=== PATIENT | female | born 1960 | race Two or more races ===

== ENCOUNTER → 2016-03-15 | Outpatient (CLI) | payer OTHER ==
--- NOTE | 2016-03-15 14:33 | KCIC ---
PROCEDURE MR right foot and right ankle HISTORY Posterior tibial tendinitis for 4 months after a fall. Pain at the medial ankle and arch of the foot. Swelling. COMPARISON None FINDINGS Right ankle Peroneal tendons are intact. Anterior talofibular ligament demonstrates sprain without complete rupture. Calcaneofibular ligament and posterior talofibular ligament are intact the anterior inferior tibiofibular ligament intact. Posterior tibial tendon demonstrates moderate thickening with symmetrical signal compatible with tendinosis and mild interstitial partial tearing. There is also some signal at the attachment of the navicular aspect of the tendon compatible with partial tear. Mild fluid surrounds the posterior tibial tendon and the flexor tendons The anterior tibial and extensor tendons are intact. The Achilles tendon is intact. No acute plantar fasciitis. Subtalar joints are patent. Tarsal sinus is intact. There is small subchondral cystic changes at the medial talar dome without osteochondral fracture or unstable osteochondral lesion. There is no acute fracture or aggressive bone destruction. Small tibiotalar joint effusion. Small posterior subtalar joint effusion. Mild soft tissue edema around the ankle. Right foot Lisfranc ligament complex is intact as is tarsometatarsal alignment. Primary osteoarthritis is identified at the foot, at the tarsometatarsal joints particularly where there is subchondral marrow reactive edema and cystic change. Similar findings are also identified at the naviculocuneiform joints No evidence of tendon rupture in the foot. Mild flexor tendon sheath fluid at the level of Tyrell's knot. No acute sesamoiditis. IMPRESSION 1. Posterior tibial tenosynovitis with partial tearing. 2. Anterior talofibular ligament sprain. 3. Mild subchondral cystic change at the medial talar dome, but without fracture or unstable osteochondral lesion. 4. Small tibiotalar and posterior subtalar joint effusions. Electronically signed by: Aren Shepard MD (Mar 15, 2016 14:32:07)
== END | disposition home or self-care (01) ==
LOC: KCIC MRI 12:46
PROVIDERS: ATTEND Podiatrist
DX: M76.821 Posterior tibial tendinitis, right leg (principal); M25.571 Pain in right ankle and joints of right foot; M25.471 Effusion, right ankle; M19.071 Primary osteoarthritis, right ankle and foot; S93.491A Sprain of other ligament of right ankle, initial encounter; X58.XXXA Exposure to other specified factors, initial encounter; Y93.89 Activity, other specified; Y92.89 Other specified places as the place of occurrence of the external cause; Y99.8 Other external cause status
CPT/HCPCS: 73718; 73721

== ENCOUNTER → 2017-01-23 | Outpatient (CLI) | payer OTHER ==
--- NOTE | 2017-02-06 08:56 | CARD ---
APPROVED REPORT EXAM: Two-dimensional and M-mode echocardiogram with Doppler and color Doppler. Other Information Quality : GoodHR: 67bpm INDICATION Abnormal ECG 2D DIMENSIONS RVDd3.0 (2.9-3.5cm)IVSd1.1 (0.7-1.1cm) Aortic Root(2D)2.7 (2.0-3.7cm)LVDd5.0 (3.9-5.9cm) LVOT Diameter1.8 (1.8-2.4cm)PWd1.1 (0.7-1.1cm) IVSs1.5 (0.8-1.2cm)LVDs3.7 (2.5-4.0cm) FS (%) 25.8 %PWs1.1 (0.8-1.2cm) SV60.5 mlLVEF(%)50.6 (>50%) Aortic Valve AoV Peak Tom.139.6cm/sAoV VTI30.5cm AO Peak GR.7.8mmHgLVOT Peak Tom.103.3cm/s AO Mean GR.4mmHgAVA (VMAX)1.92cm2 Mitral Valve MV E Wsrhmsdi16.1cm/sMV DECEL ELGB978xo MV A Orlptccd05.1cm/sE/A Ratio1.3 Pulmonary Valve PV Peak Pcdgcgmz587.3cm/s Tricuspid Valve RAP [id number] LEFT VENTRICLE The left ventricle is normal size. There is mild concentric left ventricular hypertrophy. Sigmoidal s eptum present. The left ventricular systolic function is normal. The ejection fraction is estimated a t 55-60%. There is normal LV segmental wall motion. Transmitral Doppler flow pattern is Grade I-abnor mal relaxation pattern. RIGHT VENTRICLE The right ventricle is normal size. The right ventricular systolic function is normal. ATRIA The left atrium size is normal. The right atrium size is normal. The interatrial septum is intact wit h no evidence for an atrial septal defect or patent foramen ovale as noted on 2-D or Doppler imaging. AORTIC VALVE The aortic valve is mildly thickened but opens well. Doppler and Color Flow revealed no significant a ortic regurgitation. There is no significant aortic valvular stenosis. MITRAL VALVE The mitral valve is normal in structure and function. There is no evidence of mitral valve prolapse. There is no mitral valve stenosis. Doppler and Color Flow revealed no mitral valve regurgitation note d. TRICUSPID VALVE The tricuspid valve is normal in structure and function. Doppler and Color Flow revealed trace tricus pid valve regurgitation. There is no tricuspid valve prolapse or vegetation. There is no tricuspid va lve stenosis. PULMONIC VALVE The pulmonary valve is normal in structure and function. Doppler and Color Flow revealed no pulmonic valvular regurgitation. There is no pulmonic valvular stenosis. GREAT VESSELS The aortic root is normal in size. The ascending aorta is normal in size. The IVC is normal in size a nd collapses >50% with inspiration. PERICARDIAL EFFUSION There is no pleural effusion. There is no evidence of significant pericardial effusion. Critical Notification Critical Value: No <Conclusion> The left ventricular systolic function is normal. The ejection fraction is estimated at 55-60%. There is normal LV segmental wall motion. Doppler and Color Flow revealed trace tricuspid valve regurgitation. There is no evidence of significant pericardial effusion.
== END | disposition home or self-care (01) ==
LOC: ECHO 11:03
PROVIDERS: ATTEND Internal Medicine Cardiovascular Disease
DX: I45.10 Unspecified right bundle-branch block (principal); I51.7 Cardiomegaly; R94.31 Abnormal electrocardiogram [ECG] [EKG]
CPT/HCPCS: 93306

== ENCOUNTER → 2017-03-12 | Outpatient (CLI) | payer OTHER | LOC: KCIC 15:12 | DX: M48.8X6 Other specified spondylopathies, lumbar region (principal); M47.892 Other spondylosis, cervical region; M25.78 Osteophyte, vertebrae; M47.896 Other spondylosis, lumbar region | CPT/HCPCS: 72050; 72110; 73130 ==

== ENCOUNTER → 2017-03-28 | Outpatient (CLI) | payer OTHER | END | disposition home or self-care (01) | LOC: KCIC MRI 13:00 | DX: M47.896 Other spondylosis, lumbar region (principal); M41.86 Other forms of scoliosis, lumbar region; D18.09 Hemangioma of other sites | CPT/HCPCS: 72148 ==

== ENCOUNTER 2017-05-27 09:30 | Inpatient (IN) | payer OTHER ==
[2017-05-27 10:03] LABS: POC GLUCOSE 120 mg/dL (70-99)
[2017-05-27 10:09] LABS: ADD MAN DIFF? NO
[2017-05-27 10:11] LABS: BASO # 0.1 x10^3/uL (0.0-0.2); BASO % 1 % (0-3); EOS # 0.4 x10^3/uL (0.0-0.7); EOS % 4 % (0-3); HEMATOCRIT 33.8 % (36.0-47.0); HEMOGLOBIN 11.5 g/dL (12.0-15.5); LYMPH # 3.3 x10^3/uL (1.0-4.8); LYMPH % 32 % (24-48); MEAN CORPUSCULAR HEMOGLOBIN 29 pg (25-35); MEAN CORPUSCULAR HGB CONC 34 g/dL (31-37); MEAN CORPUSCULAR VOLUME 84 fL (79-100); MONO # 0.6 x10^3/uL (0.0-1.1); MONO % 6 % (0-9); NEUT # 6.1 x10^3uL (1.8-7.7); NEUT % 58 % (31-73); PLATELET COUNT 423 x10^3/uL (140-400); RED BLOOD COUNT 4.03 x10^6/uL (3.50-5.40); WHITE BLOOD COUNT 10.6 x10^3/uL (4.0-11.0)
[2017-05-27 10:22] LABS: ANION GAP 10 (6-14); BLOOD UREA NITROGEN 21 mg/dL (7-20); BUN/CREATININE RATIO 15 (6-20); CALCIUM 8.6 mg/dL (8.5-10.1); CARBON DIOXIDE 26 mmol/L (21-32); CHLORIDE 98 mmol/L (98-107); CREATININE 1.4 mg/dL (0.6-1.0); GLUCOSE 134 mg/dL (70-99); POTASSIUM 3.2 mmol/L (3.5-5.1); SODIUM 134 mmol/L (136-145)
[2017-05-27] MEDS: IV NORMAL SALINE 1000ML BAG 1,000 ML IV ×3 (10:26→21:12)
[2017-05-27] MEDS: ONDANSETRON PF 4 MG/2 ML VIAL. IV (10:26)
[2017-05-27 10:28] LABS: ALBUMIN 3.1 g/dL (3.4-5.0); ALBUMIN/GLOBULIN RATIO 0.7 (1.0-1.7); ALK PHOS 75 U/L (46-116); ALT (SGPT) 19 U/L (14-59); AST (SGOT) 15 U/L (15-37); MAGNESIUM 1.9 mg/dL (1.8-2.4); TOTAL BILIRUBIN 0.3 mg/dL (0.2-1.0); TOTAL PROTEIN 7.6 g/dL (6.4-8.2)
[2017-05-27 10:30] LABS: TROPONINI < 0.017 ng/mL (0.000-0.055)
[2017-05-27 10:36] LABS: NT-PRO BNP 926 pg/mL (0-124)
[2017-05-27 10:36] LABS: CKMB INDEX 1.1 % (0-4); CKMB MASS 1.1 ng/mL (0.0-3.6); CREATINE KINASE 100 U/L (26-192)
[2017-05-27 11:18] LABS: BILIRUBIN,URINE NEGATIVE (NEG); CLARITY,URINE CLEAR; COLOR,URINE YELLOW; GLUCOSE,URINE NEGATIVE (NEG); NITRITE,URINE NEGATIVE (NEG); PH,URINE 6.5; PROTEIN,URINE NEGATIVE (NEG-TRACE); UROBILINOGEN,URINE 0.2 mg/dL (0.2 mg/dL)
[2017-05-27 11:49] LABS: BACTERIA,URINE FEW /HPF (0-FEW); RBC,URINE 0 /HPF (0-2); SQUAMOUS EPITHELIAL CELL,UR MOD /LPF; WBC,URINE 0 /HPF (0-4)
[2017-05-27] MEDS: fentaNYL PF VIAL 100 MCG/2 ML VIAL IV (12:03)
[2017-05-27] MEDS: MIDAZOLAM HCL/PF 2 MG/2 ML VIAL. IV (12:25)
[2017-05-27] MEDS ORDERED: ONDANSETRON PF 4 MG/2 ML VIAL. IV (12:45)
[2017-05-27] MEDS ORDERED: fentaNYL PF VIAL 100 MCG/2 ML VIAL IV (12:45)
[2017-05-27] MEDS: ACETAMINOPHEN 325 MG TABLET. PO ×2 (14:59→21:12)
[2017-05-27 16:23] LABS: TROPONINI < 0.017 ng/mL (0.000-0.055)
[2017-05-27 16:45] LABS: POC GLUCOSE 137 mg/dL (70-99)
[2017-05-27] MEDS: ASPIRIN ENTERIC COATED 81 MG TABLET.DR. PO ×2 (17:55→18:00)
[2017-05-27] MEDS: POTASSIUM CHLORIDE 20 MEQ TABLET.ER. PO ×2 (17:55→18:30)
[2017-05-27] MEDS: ESTRADIOL 1 MG TABLET. PO ×2 (17:55→18:00)
[2017-05-27] MEDS: LIDOCAINE (700MG/PATCH) PATCH. TD (17:55)
[2017-05-27] MEDS: TRIAMTERENE/HCTZ 37.5/25MG TABLET. PO (18:00)
[2017-05-27] MEDS: LEVOTHYROXINE 175 MCG TABLET PO (18:00)
[2017-05-27 18:39] LABS: TROPONINI < 0.017 ng/mL (0.000-0.055)
[2017-05-27] MEDS: PATCH REMOVAL. MC (20:07)
[2017-05-27] MEDS ORDERED: PATCH REMOVAL. MC (21:00)
[2017-05-27] MEDS: tiZANidine 4 MG TABLET. PO (21:13)
[2017-05-27] MEDS: LABETALOL HCL 200 MG TABLET PO (21:13)
[2017-05-27 22:00] LABS: POC GLUCOSE 112 mg/dL (70-99)
[2017-05-28 04:46] LABS: ADD MAN DIFF? NO
[2017-05-28 04:52] LABS: BASO # 0.1 x10^3/uL (0.0-0.2); BASO % 1 % (0-3); EOS # 0.3 x10^3/uL (0.0-0.7); EOS % 3 % (0-3); HEMATOCRIT 29.9 % (36.0-47.0); HEMOGLOBIN 10.2 g/dL (12.0-15.5); LYMPH # 3.5 x10^3/uL (1.0-4.8); LYMPH % 40 % (24-48); MEAN CORPUSCULAR HEMOGLOBIN 29 pg (25-35); MEAN CORPUSCULAR HGB CONC 34 g/dL (31-37); MEAN CORPUSCULAR VOLUME 85 fL (79-100); MONO # 0.6 x10^3/uL (0.0-1.1); MONO % 7 % (0-9); NEUT # 4.3 x10^3uL (1.8-7.7); NEUT % 49 % (31-73); PLATELET COUNT 373 x10^3/uL (140-400); RED BLOOD COUNT 3.54 x10^6/uL (3.50-5.40); RED CELL DISTRIBUTION WIDTH 14.3 % (11.5-14.5); WHITE BLOOD COUNT 8.8 x10^3/uL (4.0-11.0)
[2017-05-28] MEDS: IV NORMAL SALINE 1000ML BAG 1,000 ML IV (05:12)
[2017-05-28 05:13] LABS: ANION GAP 6 (6-14); BLOOD UREA NITROGEN 23 mg/dL (7-20); CARBON DIOXIDE 27 mmol/L (21-32); CHLORIDE 107 mmol/L (98-107); CHOLESTEROL 151 mg/dL (0-200); CREATININE 1.4 mg/dL (0.6-1.0); GLUCOSE 110 mg/dL (70-99); HDLC 48 mg/dL (40-60); LDLC 80 mg/dL (0-100); NON-HDL CHOLESTEROL 103 mg/dL (0-129); POTASSIUM 3.4 mmol/L (3.5-5.1); SODIUM 140 mmol/L (136-145); TRIGLYCERIDES 114 mg/dL (0-150); VLDLC 23 mg/dL (0-40)
[2017-05-28 05:17] LABS: CHOLESTEROL/HDL RATIO 3.1
[2017-05-28 05:25] LABS: THYROID STIM HORMONE (TSH) 0.997 uIU/mL (0.358-3.74)
[2017-05-28 07:39] LABS: POC GLUCOSE 111 mg/dL (70-99)
[2017-05-28] MEDS: TRIAMTERENE/HCTZ 37.5/25MG TABLET. PO (08:08)
[2017-05-28] MEDS: LEVOTHYROXINE 175 MCG TABLET PO (08:08)
[2017-05-28] MEDS: ASPIRIN ENTERIC COATED 81 MG TABLET.DR. PO (08:09)
[2017-05-28] MEDS: CHOLECALCIFEROL (VITAMIN D3) 1,000 UNIT TABLET PO (08:10)
[2017-05-28] MEDS: LABETALOL HCL 200 MG TABLET PO (08:10)
[2017-05-28] MEDS: LIDOCAINE (700MG/PATCH) PATCH. TD (08:12)
[2017-05-28] MEDS: ESTRADIOL 1 MG TABLET. PO (09:27)
[2017-05-28] MEDS: POTASSIUM CHLORIDE 20 MEQ TABLET.ER. PO (11:33)
[2017-05-28] MEDS: ACETAMINOPHEN 325 MG TABLET. PO (16:13)
== END 2017-05-28 17:12 | disposition home or self-care (01) | DRG 103 ==
LOC: ER 09:30 → 5 NORTH 11:40
PROC: 5A09357 Assistance with Respiratory Ventilation, Less than 24 Consecutive Hours, Continuous Positive Airway Pressure (ICD-10-PCS; principal; 2017-05-28)
DX: G43.909 Migraine, unspecified, not intractable, without status migrainosus (principal); E11.22 Type 2 diabetes mellitus with diabetic chronic kidney disease; N18.3 Chronic kidney disease, stage 3 (moderate); F32.9 Major depressive disorder, single episode, unspecified; R13.10 Dysphagia, unspecified; E03.9 Hypothyroidism, unspecified; G89.29 Other chronic pain; G47.33 Obstructive sleep apnea (adult) (pediatric); M06.9 Rheumatoid arthritis, unspecified; I12.9 Hypertensive chronic kidney disease with stage 1 through stage 4 chronic kidney disease, or unspecified chronic kidney disease; M79.7 Fibromyalgia; M19.90 Unspecified osteoarthritis, unspecified site; R07.89 Other chest pain; M54.9 Dorsalgia, unspecified; Z90.49 Acquired absence of other specified parts of digestive tract; Z90.710 Acquired absence of both cervix and uterus; Z82.49 Family history of ischemic heart disease and other diseases of the circulatory system
CPT/HCPCS: 36415; 70450; 70551; 71045; 72141; 76770; 80048; 80053; 80061; 81001; 82553; 82962; 83735; 83880; 84443; 84484; 85025; 93005; 96361; 96374; 96375; 99285; 99285-25; J2060; J2250; J2405; J7030

== ENCOUNTER → 2017-10-21 | Outpatient (CLI) | payer OTHER ==
[2017-05-28 10:59] VITALS: BP 110/48
[~2017-10-21] MED LIST: ASPI-612 PO; CHOL10003 PO; DILT120C71 PO; ESTR2TAB PO; GADOBUTROL 10 MMOL/10 ML VIAL IV ONE; LABE200T4 PO; LEVO175T5 PO; Patch Removal MC; TIZA4TAB PO; TRIA1TAB5 PO
--- NOTE | 2017-10-21 11:20 | RAD ---
MRI Lumbar Spine without and with contrast History: Right leg radiculopathy, low back pain, history of lumbar laminectomy one month ago Technique: Multiplanar, multi sequential pre and post contrast MR imaging was performed of the lumbar spine. Contrast: 10 cc Gadavist Comparison: 03/28/2017 Findings: Lumbar vertebral body stature and AP alignment are maintained. There is again focus of likely sclerosis of the posterior right L2 vertebral body overall unchanged emesis with new edema. There are again hemangiomas most notable of L1 and L4. There is again mild disc desiccation L4-5 and L5-S1. There is no fluid in the intervertebral disc spaces. There is no new significant edema of the vertebral bodies. Conus terminates at L1. There is no nodular enhancement of the conus or cauda equina, no significant enhancement in the intervertebral disc spaces. There is some vessels along the surface of the visualized distal cord not associated with significant cord signal change. L3-L4: Spinal canal and neural foramina are adequate. There is mild facet degenerative change, prominence of posterior epidural fat, and buckling of the ligamentum flavum. L4-L5: There has been right laminectomy. There is fluid collection on the right posteriorly in the epidural space and extending posteriorly at site of right laminectomy with peripheral enhancement. This in overall dimension measures about 2.6 cm AP by 0.9 cm transverse by about 1 cm cc. There is extent above the intervertebral disc space to the mid L4 vertebral body level and also extending inferiorly to the mid L5 vertebral body level. There is resultant mass effect upon the posterior aspect of the thecal sac greater in the right lateral recess with moderate to severe right lateral recess stenosis, moderate narrowing of the central canal. There is contact descending right L5 nerve root in the right lateral recess. There is some preserved subarachnoid space. There is prominent fluid in the bilateral facet articulations, overall increased compared with the previous exam. Neural foramina are overall adequate. L5-S1: Spinal canal and neural foramina are adequate. Impression: 1. There has been right L4-5 laminectomy. There is a nonspecific peripherally enhancing fluid collection of uncertain sterility at site of right laminectomy extending to the right epidural space with some resultant mass effect upon the posterior right aspect of the thecal sac, moderate to severe right lateral recess stenosis and contact of the descending right L5 nerve root. There is moderate narrowing of the central canal at this level. There is nonspecific fluid in the facet articulations bilaterally at L4-5, also of uncertain sterility. 2. There are some nonspecific vessels along the surface of the visualized distal cord although not associated with appreciable signal change of the included cord. Electronically signed by: Ari Pastor MD (10/21/2017 11:17 AM) [facility]
== END | disposition home or self-care (01) ==
LOC: MRI 09:44
PROVIDERS: ATTEND Family Medicine
DX: M48.061 Spinal stenosis, lumbar region without neurogenic claudication (principal); I12.9 Hypertensive chronic kidney disease with stage 1 through stage 4 chronic kidney disease, or unspecified chronic kidney disease; E11.22 Type 2 diabetes mellitus with diabetic chronic kidney disease; N18.3 Chronic kidney disease, stage 3 (moderate); E03.9 Hypothyroidism, unspecified; G43.909 Migraine, unspecified, not intractable, without status migrainosus; Z90.49 Acquired absence of other specified parts of digestive tract; Z90.710 Acquired absence of both cervix and uterus; Z82.49 Family history of ischemic heart disease and other diseases of the circulatory system
CPT/HCPCS: 72158; A9585

== ENCOUNTER → 2018-01-29 | Outpatient (CLI) | payer OTHER ==
[2017-05-28 10:59] VITALS: BP 110/48
[~2018-01-29] MED LIST changes: -GADOBUTROL 10 MMOL/10 ML VIAL IV ONE
--- NOTE | 2018-01-29 15:41 | KCIC ---
3 view study of the lumbar spine Clinical indications: Follow-up after lumbar fusion. Patient feels a lump to the right side of the incision site. COMPARISON: No recent radiographic study. Lumbar spine MRI study dated October 16, 2017. FINDINGS: The transverse processes are intact. Posterior lumbar fusion is seen at L4 and L5 with bilateral transpedicular screws connected by 2 vertical metallic stabilizer bars. Interbody disc space expanding fusion device is seen within the L4-5 disc space. Grade 1 anterolisthesis of L4-5 is seen. No discitis or lytic process or compression fracture is evident. There is focal sclerosis of the posterior aspect of the L2 vertebral body. This corresponds to a bone island seen on the MRI study lumbar spine. IMPRESSION: L4-5 fusion. Grade 1 anterolisthesis of L4-5. The anterolisthesis is new since the lumbar spine MRI study. Electronically signed by: Isaak Moon MD (01/29/2018 3:38 PM) [id number]
== END | disposition home or self-care (01) ==
LOC: KCIC 14:30
DX: Z09 Encounter for follow-up examination after completed treatment for conditions other than malignant neoplasm (principal); M43.16 Spondylolisthesis, lumbar region; Z98.1 Arthrodesis status
CPT/HCPCS: 72100

== ENCOUNTER → 2018-04-09 | Outpatient (CLI) | payer OTHER ==
[2017-05-28 10:59] VITALS: BP 110/48
--- NOTE | 2018-04-09 17:09 | KCIC ---
EXAM: Lumbar spine, 3 views. HISTORY: Pain. COMPARISON: 01/29/2018 FINDINGS: 3 views of the lumbar spine are obtained. There is instrumented posterior spinal fusion and disc space fusion device placement at L4-L5. There is no lucency surrounding the instrumentation to suggest loosening. There is grade 1 anterolisthesis of L4 on L5. The vertebral bodies are normal in height and the nonfused disc spaces are preserved. There is a small sclerotic lesion within the posterior aspect of L2, likely a bone island based on prior MRI. There are cholecystectomy clips. There is a small calcification overlying the right upper quadrant. This appears to be separate from the renal shadow. IMPRESSION: 1. Instrumented fusion at L4-L5. There is grade 1 anterolisthesis at this level which is stable compared to the study dated 01/29/2018 and compared to the preoperative exam dated 10/21/2017. 2. No acute osseous finding. Electronically signed by: Nilda Cox MD (04/09/2018 5:06 PM) [facility]-KCIC1
== END | disposition home or self-care (01) ==
LOC: KCIC 15:09
DX: M43.26 Fusion of spine, lumbar region (principal); M43.16 Spondylolisthesis, lumbar region; Z98.1 Arthrodesis status
CPT/HCPCS: 72100

== ENCOUNTER → 2018-04-18 | Outpatient (CLI) | payer OTHER ==
[2017-05-28 10:59] VITALS: BP 110/48
--- NOTE | 2018-04-20 09:09 | KCIC ---
Thyroid ultrasound HISTORY: Bilateral thyroid nodules. Bladimir's thyroiditis. Difficulty swallowing. COMPARISON: October 27, 2015 images, although that report is not available. FINDINGS: Right thyroid measures 2.2 x 1.8 x 1.3 cm. Left thyroid measures 2.9 x 1.1 x 1.2 cm. Isthmus measures 2.2 mm. Size is similar to prior study. The thyroid gland demonstrates a diffusely heterogeneous appearance similar to the prior study. Large right thyroid mass at the inferior aspect, measures 9 x 9 x 9 mm. This measures smaller than on the prior study, although measurements be inaccurate due to the diffusely heterogeneous background of thyroid tissue. This demonstrates a complex and solid appearance, with internal vascularity. Left lower thyroid nodule measures 7 x 6 x 6 mm. This appears mostly solid, and demonstrates internal vascularity. No significant change in size from the prior images. IMPRESSION: 1. Diffusely heterogeneous appearance of the thyroid similar to the prior study may be related to the patient's history of thyroiditis. 2. Bilateral solid vascular thyroid nodules are again seen. No definite increase in size, although measurements are difficult due to the background of thyroid heterogeneity. Electronically signed by: Aren Shepard MD (04/20/2018 9:06 AM) [facility]
== END | disposition home or self-care (01) ==
LOC: KCIC US 12:14
PROVIDERS: ATTEND Family Medicine
DX: E04.2 Nontoxic multinodular goiter (principal)
CPT/HCPCS: 76536

== ENCOUNTER → 2018-05-19 | Outpatient (CLI) | payer OTHER ==
[2017-05-28 10:59] VITALS: BP 110/48
--- NOTE | 2018-05-19 14:45 | RAD ---
Bilateral lower extremity venous doppler ultrasound Indication:DX: Bilateral Leg pain and swelling- Post OP LSP fusion Dec 2017. Technique: Color Doppler, grayscale, and spectral waveform analysis is used to evaluate the right and left lower extremity deep venous system, including the common femoral vein, superficial femoral vein, popliteal vein, and visualized calf veins. Right leg: No evidence of deep venous thrombosis. Normal response to augmentation, normal compressibility and normal phasicity is demonstrated. Visualized calf veins are patent. Left leg: No evidence of deep venous thrombosis. Normal response to augmentation, normal compressibility and normal phasicity is demonstrated. Visualized calf veins are patent. Impression: Negative for deep venous thrombosis Electronically signed by: Aren Shepard MD (05/19/2018 2:42 PM) [facility]
== END | disposition home or self-care (01) ==
LOC: US 14:00
PROVIDERS: ATTEND Family Medicine
DX: M79.604 Pain in right leg (principal); M79.605 Pain in left leg; R22.43 Localized swelling, mass and lump, lower limb, bilateral; R09.89 Other specified symptoms and signs involving the circulatory and respiratory systems
CPT/HCPCS: 93970

== ENCOUNTER → 2018-11-27 | Outpatient (CLI) | payer OTHER ==
[2017-05-28 10:59] VITALS: BP 110/48
[~2018-11-27] MED LIST changes: -TIZA4TAB PO; +TIZA4TAB2 PO
--- NOTE | 2018-11-28 07:27 | KCIC ---
THYROID ULTRASOUND History: Bladimir's thyroiditis Comparison: 04/18/2018 Findings: Multiple sonographic images of the thyroid gland are symmetric. Right lobe measured 2.9 x 1.3 x 0.9 cm. Left lobe measured 2.8 x 1.5 x 0.8 cm. There is again solid inferior right thyroid nodule about 1.3 x 1.1 x 1 cm versus previously 0.9 x 0.9 x 0.9 cm. There is some internal vascularity on color Doppler imaging. There is again small nodule of the inferior left gland about 0.6 x 0.5 x 0.6 cm not convincingly changed in size or morphology. There is again some internal vascularity on color Doppler imaging. There is again diffuse heterogeneity of thyroid parenchyma bilaterally. No new thyroid nodularity is demonstrated. Isthmus measured 0.2 cm in thickness. Impression: 1. There are again bilateral thyroid nodules. Inferior right thyroid nodule is slightly larger, stable mild inferior left thyroid nodule. Electronically signed by: Ari Pastor MD (11/28/2018 7:24 AM) [facility]
== END | disposition home or self-care (01) ==
LOC: KCIC US 14:39
PROVIDERS: ATTEND Surgery
DX: E04.1 Nontoxic single thyroid nodule (principal)
CPT/HCPCS: 76536

== ENCOUNTER → 2018-12-18 | Outpatient (CLI) | payer OTHER ==
[2017-05-28 10:59] VITALS: BP 110/48
--- NOTE | 2018-12-18 15:39 | RAD ---
EXAM: THYROID ULTRASOUND. HISTORY: Bladimir's thyroiditis. The patient presents for biopsy of a right thyroid nodule. COMPARISON: 11/27/2018, 04/18/2018, 10/27/2015. FINDINGS: Sonographic images of the right thyroid lobe were obtained at the site of prior concern. The lobe is very atrophic, lobulated and hypoechoic. The 1.3 cm suggested nodular region is flat on transverse images, and is not changed since the 2016 study on similar images. The region of concern is the background thyroid parenchyma, and no discrete nodule is identified on real-time scanning. This was discussed with the patient. She elected to defer biopsy. IMPRESSION: 1. No discrete thyroid nodule is appreciated. The region of concern is a lobulated portion of the atrophic right thyroid lobe and appears stable since 2016. Biopsy was deferred. Ongoing surveillance could be performed if there is persistent concern. Electronically signed by: Cece Castellano MD (12/18/2018 3:37 PM) [facility]
== END | disposition home or self-care (01) ==
LOC: US 13:02
PROVIDERS: ATTEND Surgery
DX: E03.4 Atrophy of thyroid (acquired) (principal); E06.3 Autoimmune thyroiditis; E04.1 Nontoxic single thyroid nodule
CPT/HCPCS: 76536

== ENCOUNTER → 2019-01-28 | Outpatient (CLI) | payer OTHER ==
[2017-05-28 10:59] VITALS: BP 110/48
[~2019-01-28] MED LIST changes: +ALBUTEROL SULFATE 2.5 MG/3 ML NEBU. NEB ONE
--- NOTE | 2019-01-28 13:54 | RAD ---
EXAM: Chest, 2 views. HISTORY: Shortness of breath. COMPARISON: 05/27/2017 FINDINGS: 2 views of the chest are obtained. There is no infiltrate, pleural effusion or pneumothorax. There is a stable calcified granuloma within the right upper lobe. IMPRESSION: No acute pulmonary finding. Electronically signed by: Nilda Cox MD (01/28/2019 1:51 PM) [facility]
== END | disposition home or self-care (01) ==
LOC: PF 09:42
PROVIDERS: ATTEND Family Medicine
DX: J84.10 Pulmonary fibrosis, unspecified (principal)
CPT/HCPCS: 71046; 94060; 94640; 94729; J7613

== ENCOUNTER → 2020-04-25 | Outpatient (CLI) | payer MEDICARE ==
[2017-05-28 10:59] VITALS: BP 110/48
[~2020-04-25] MED LIST changes: -ALBUTEROL SULFATE 2.5 MG/3 ML NEBU. NEB ONE; -ASPI-612 PO; +ASPI-886 PO
--- NOTE | 2020-04-25 18:16 | KCIC ---
PROCEDURE: XR EXAM OF ANKLE_RIGHT 3VIEWS, XR FOOT_RIGHT 3 VIEWS STUDY DATE: 04/25/2020 CLINICAL INDICATION / HISTORY: Reason: RT ANKLE AND FOOT SWELLING, ARTHRITIS / Spl. Instructions: / History: . TECHNIQUE: AP, lateral and oblique views of the right foot. COMPARISON: None FINDINGS: No fracture or dislocation is identified. The bone density is decreased diffusely. The join t space widths are maintained, and there are no erosions to suggest an inflammatory arthropathy. No s oft tissue abnormality is seen. IMPRESSION: Osteopenia. No acute osseous abnormality. PROCEDURE: XR EXAM OF ANKLE_RIGHT 3VIEWS, XR FOOT_RIGHT 3 VIEWS STUDY DATE: 04/25/2020 CLINICAL INDICATION / HISTORY: Reason: RT ANKLE AND FOOT SWELLING, ARTHRITIS / Spl. Instructions: / History: . TECHNIQUE: Right ankle 3 views. COMPARISON: None FINDINGS: The ankle mortise is approximated, and the talar dome is unremarkable. Bones are deminerali zed. The joint space widths are maintained. No fracture or dislocation is identified. Mild soft tissu e swelling is appreciated. IMPRESSION: Osteopenia and mild ankle soft tissue swelling. No acute osseous abnormality. Electronically signed by: Lorene Portillo MD (04/25/2020 6:13 PM) [id number]
--- NOTE | 2020-04-25 18:26 | KCIC ---
Bilateral digital screening mammograms with 3-D tomosynthesis: Reason for examination: Routine screening. Comparison is made to previous studies dated 11/03/2015 and 12/19/2012. Bilateral mammograms in CC and oblique projections were obtained with 2-D imaging and 3-D tomosynthes is imaging on a Siemens Inspiration unit and reviewed on the workstation. Interpretation was made wit h the benefit of CAD. The skin and nipples show no abnormalities. No abnormal axillary lymph nodes are seen. The breast par enchyma is extremely dense. (Breast density: Category D.) There appears to be a nodular asymmetry in the right breast seen best on cc view but probably at approximately the 11:00 B position 7 cm posteri or to the nipple. There also appear to be 2 small nodular densities in the subareolar 3:00 and 5:30 p ositions anteriorly in the left breast. Further evaluation with bilateral breast ultrasound is recomm ended. There are no suspicious calcifications seen. Impression: Small nodular parenchymal densities seen bilaterally. Recommend further evaluation with bilateral adan ast ultrasound. Your patient's mammogram demonstrates that she has dense breast tissue (breast density category C or D), which could hide abnormalities, and if she has other risk factors for breast cancer that have bee n identified, she might benefit from supplemental screening tests that may be suggested by you as her ordering physician. Dense breast tissue, in and of itself, is a relatively common condition. Therefo re, this information is not provided to cause undue concern, but rather to raise your awareness and t o promote discussion with your patient regarding the presence of other risk factors, in addition to d ense breast tissue. Your patient's mammography results will be sent to her. BI-RAD Category 0: Incomplete. Needs additional imaging evaluation. "Our facility is accredited by the [employer] Mammography Program." This patient's information has been entered into a reminder system for the patient to be notified wit h the results of her examination and a target date for the next mammogram. Electronically signed by: Carissa Cristobal MD (04/25/2020 6:23 PM) [facility]
== END ==
LOC: KCIC MAMMO 13:55
PROVIDERS: ATTEND Internal Medicine
DX: Z12.31 Encounter for screening mammogram for malignant neoplasm of breast (principal); M19.071 Primary osteoarthritis, right ankle and foot; M85.871 Other specified disorders of bone density and structure, right ankle and foot; N64.89 Other specified disorders of breast
CPT/HCPCS: 73610; 73630; 77063; 77067

== ENCOUNTER → 2020-05-10 | Outpatient (CLI) | payer MEDICARE ==
[2017-05-28 10:59] VITALS: BP 110/48
--- NOTE | 2020-05-10 16:53 | RAD ---
Examination: Bilateral Limited breast ultrasound. INDICATION: 59-year-old woman recalled from screening for bilateral nodular parenchymal densities. COMPARISON: 04/25/2020 bilateral screening mammogram TECHNIQUE: Grayscale and color Doppler imaging of both breasts was performed in the areas of mammogra [facility] interest from the most recent screening mammogram FINDINGS: Targeted ultrasound of the right breast identifies at 11:00 position 7 cm from the nipple a 5 mm circ umscribed parallel orientation anechoic mass with thin internal septation, compatible with a sonograp hically benign cyst. No suspicious sonographic findings are identified. No right axillary adenopathy. Targeted ultrasound of the left breast identifies at 3:00 position 3 cm from the nipple a 7 mm circum scribed parallel orientation anechoic mass, consistent with a sonographically benign cyst. No suspici ous sonographic findings are identified. No definite sonographic correlate to the mammographic findin g at the 5:30 o'clock position is identified at this visit. No left axillary adenopathy. IMPRESSION: Benign findings on bilateral breast ultrasound. No evidence of malignancy. BI-RADS Category 2 Benign findings Recommend return to routine screening next due in one year. Electronically signed by: Lorene Portillo MD (05/10/2020 4:50 PM) [id number]
== END ==
LOC: US 14:58
PROVIDERS: ATTEND Internal Medicine
DX: R92.8 Other abnormal and inconclusive findings on diagnostic imaging of breast (principal); N63.21 Unspecified lump in the left breast, upper outer quadrant; N63.11 Unspecified lump in the right breast, upper outer quadrant
CPT/HCPCS: 76641-50

== ENCOUNTER 2021-03-22 08:09 | Day surgery (SDC) | payer MEDICARE ==
[~2021-03-22] VITALS: Ht 167.6 cm; Wt 90.9 kg
[~2021-03-22 08:09] MED LIST changes: +ACET500T68 PO; +CYCL5TAB PO; +ESCITALOPRAM OX10 MG PO; -ESTR2TAB PO; +ESTR2TAB3 PO; +HYDR-2868 PO; +HYDROmorphone 2 MG/ML INJ. IVP PRN; +IV RINGERS,LACTATED 1000ML 1,000 ML IV SCH; +MORPHINE SULFATE 2 MG/ML INJ. IVP PRN; +PANT40TA77 PO; +PROCHLORPERAZINE 10 MG/2 ML VIAL. IVP PRN; +SPIR25TA5 PO; +TIZA-75 PO; -TIZA4TAB2 PO; +TORS20TA2 PO; +fentaNYL PF VIAL 100 MCG/2 ML VIAL IVP PRN
[2021-03-22] MEDS ORDERED: PHENYLEPHRINE in 0.9% NACL PF 1 MG/10 ML SYRINGE. IV ONE ×2 (08:33→10:34)
[2021-03-22] MEDS ORDERED: MIDAZOLAM HCL/PF 2 MG/2 ML VIAL. ONE ×2 (08:39→09:13)
[2021-03-22] MEDS ORDERED: ROPIVacaine 0.5% PF 20 ML VIAL. ONE (08:39)
[2021-03-22] MEDS ORDERED: DEXAMETHASONE SOD PHOS 4 MG/ML VIAL ONE ×2 (08:39→09:08)
[2021-03-22] MEDS ORDERED: LIDOCAINE 1% PF 2 ML VIAL. ONE (08:39)
[2021-03-22 08:40] VITALS: BP 116/60
--- NOTE | 2021-03-22 08:41 | PDOC1 ---
History and Physical Date of Service: DOS: DATE: 03/22/21 TIME: 08:33 Chief Complaint: Chief Complain: ankle pain History of Present Illness: HPI: Patient is a 51yo female presenting today for right ankle surgery. She has a history of right posterior tibial tendonitis. When evaluated she was resting in bed without complaint, eager for surgery. Not on any home blood thinners. Does take medications for fluid management, blood pressure, hypothyroid Past Medical/Surgical History: PMH/PSH: CKD3, Cardiac ablation, Gastric Bypass, Hypothyroid Allergies: Allergies: Coded Allergies: duloxetine (Verified Allergy, Unknown, Unknown, 03/22/21) Family History: Family History: Not reviewed with patient. Social History: Social History: Former smoker, denies alcohol drug Current Medications: Current Medications Current Medications Fentanyl Citrate (Fentanyl 2ml Vial) 25 mcg PRN Q5MIN PRN IVP MILD PAIN 1-3; Start 03/22/21 at 06:00; Stop 03/23/21 at 05:59 Fentanyl Citrate (Fentanyl 2ml Vial) 50 mcg PRN Q5MIN PRN IVP MODERATE PAIN 4- 6; Start 03/22/21 at 06:00; Stop 03/23/21 at 05:59 Morphine Sulfate (Morphine Sulfate) 1 mg PRN Q10MIN PRN IVP SEVERE PAIN 7-10; Start 03/22/21 at 06:00; Stop 03/23/21 at 05:59 Ringer's Solution 1,000 ml @ 30 mls/hr Q24H IV ; Start 03/22/21 at 06:00; Stop 03/22/21 at 17:59 Hydromorphone HCl (Dilaudid) 0.5 mg PRN Q10MIN PRN IVP SEVERE PAIN 7-10, 2nd CHOICE; Start 03/22/21 at 06:00; Stop 03/23/21 at 05:59 Prochlorperazine Edisylate (Compazine) 5 mg PACU PRN PRN IVP NAUSEA, MRX1; Start 03/22/21 at 06:00; Stop 03/23/21 at 05:59 Cefazolin Sodium/ Dextrose 50 ml @ 100 mls/hr 1X PREOP PRN IV PRIOR TO PROCEDURE; Start 03/22/21 at 06:00; Stop 03/22/21 at 18:00 Active Scripts Active Reported Torsemide 20 Mg Tablet 20 Mg PO DAILY Spironolactone 25 Mg Tablet 25 Mg PO DAILY Acetaminophen 500 Mg Tablet 500 Mg PO PRN Q8-12HRS PRN Escitalopram Oxalate 10 Mg Tablet 10 Mg PO DAILY Pantoprazole Sodium (Pantoprazole Sodium) 40 Mg Tablet.dr 40 Mg PO DAILYAC Cyclobenzaprine Hcl 5 Mg Tablet 5 Mg PO TID Hydralazine Hcl 25 Mg Tablet 1 Tab PO TID Cartia Xt (Diltiazem Hcl) 120 Mg Cap.er.24h 120 Mg PO DAILY Vitamin D3 (Cholecalciferol (Vitamin D3)) 1,000 Unit Tablet 2,000 Unit PO DAILY Estradiol 2 Mg Tablet 2 Mg PO DAILY Levothyroxine Sodium 175 Mcg Tablet 144 Mcg PO DAILYAC Aspirin Ec (Aspirin) 81 Mg Tablet.dr 81 Mg PO DAILY Labetalol Hcl 200 Mg Tablet 200 Mg PO BID ROS: Review of Systems Review of System Unless ntoed in HPI 14pt ros was negative Physical Exam: Physcial Exam: GEN: No apparent distress. Alert and oriented HEENT: Normal cephalic, atraumatic, external auditory canals are patent EYES: Extraocular muscles are intact, pupil are equally round and reactive to light and accommodation MUSCULOSKELETAL: Well developed , well nourished, good range of motion ENDOCRINE: No thyromegaly was palpated LYMPHATICS: No cervical chain or axillary nodes were noted HEMATOPOIETIC: No bruising NECK: Supple, no JVD, no thyromegaly was noted LUNGS: Clear to auscultation in all lung girard without rhonchi or wheezing HEART: RRR, S!, S2 present. Peripheral pulses intact, no obvious murmurs noted ABDOMEN: Soft, nontender. Positive bowel sounds, no organomegaly, normal bowel sounds EXTREMITIES: Without clubbing, cyanosis, or edema. Pedal pulses intact. N egative Homans sign NEUROLOGIC: Normal speech and tone. A&O x 3, moves all extremities, no obvious focal deficits PSYCHIATRIC: Normal affect, normal mood. Stable SKIN: No ulcerations or rashes, good skin turgor, no jaundice VASCULAR: Good capillary refill, neurovascular bundle appears to be intact Assessment/Plan Assessment/Plan From hospitalist perspective ok to proceed with surgery. Alvin of 2. Justifications for Admission Other Justification LESLIE CARRASCO MD Mar 22, 2021 08:41
[2021-03-22] MEDS ORDERED: IV NORMAL SALINE 1000ML BAG 1,000 ML IV SCH ×2 (09:00)
[2021-03-22] MEDS ORDERED: ONDANSETRON PF 4 MG/2 ML VIAL. ONE (09:08)
[2021-03-22] MEDS ORDERED: LIDOCAINE 2% PF 5 ML VIAL. ONE (09:08)
[2021-03-22] MEDS ORDERED: PROPOFOL 10 MG/ML (20ML) VIAL. IV ONE (09:08)
[2021-03-22] MEDS ORDERED: fentaNYL PF VIAL 100 MCG/2 ML VIAL ONE ×3 (09:12→15:16)
[2021-03-22 09:22] LABS: CALCIUM 8.1 mg/dL (8.5-10.1); CREATININE 1.6 mg/dL (0.6-1.0); POTASSIUM 3.6 mmol/L (3.5-5.1)
[2021-03-22] MEDS ORDERED: VANCOMYCIN 1 GM VIAL. ONE (10:28)
[2021-03-22] MEDS ORDERED: BUPIVACAINE MPF 0.25% 30 ML VIAL. ONE (10:28)
[2021-03-22] MEDS ORDERED: SUCCINYLCHOLINE 200 MG/10 ML VIAL. ONE (10:31)
[2021-03-22] MEDS ORDERED: ePHEDrine PF IN SALINE 50 MG/10 ML SYRINGE. IV ONE (11:11)
[2021-03-22] MEDS ORDERED: ROCURONIUM 50 MG/5 ML VIAL. ONE (11:15)
[2021-03-22] MEDS ORDERED: HYDROmorphone 2 MG/ML INJ. ONE (13:06)
[2021-03-22] MEDS ORDERED: NEOSTIGMINE METHYLSULFATE 5 MG/5 ML SYRINGE. ONE (14:12)
[2021-03-22] MEDS ORDERED: GLYCOPYRROLATE 1 MG/5 ML VIAL. ONE ×2 (14:12→14:13)
[2021-03-22] MEDS ORDERED: KETOROLAC 30 MG/ML VIAL. ONE (14:32)
[2021-03-22] MEDS ORDERED: SEVOFLURANE 61 TO 120 MINUTES. IH ONE (14:41)
--- NOTE | 2021-03-22 14:55 | PDOC4 ---
OPERATIVE NOTE Date: Date: Mar 22, 2021 Pre-Op Diagnosis: Right PT TD, stage 2B, PT tendinitis, sinus tarsitis Post-Op Diagnosis: Same as above Procedure Performed: Right medializing calcaneal osteotomy, Still osteotomy, cotton osteotomy, PT tendon repair, FDL transfer Surgeon: Wilber Valentine DPM Anesthesia Type: General with popliteal block, right lower extremity Blood Loss: 20 cc Specimans Obtained: None Findings: PT tendon had multiple split tears and intrasubstance degeneration without significant tenosynovitis. After general anesthesia, passive ankle dorsiflexion with knee extended noted neutral dorsiflexion, with knee flexed, 5 degrees dorsiflexion. Then the decision was made not to lengthen the EHL or perform gastroc recession. After Still osteotomy, the lateral column of the foot was noted straight but there was moderate forefoot varus and then the decision was made to perform cotton osteotomy, after which, the first ray was able to load and balance off to the rear foot. Complications: None Operative Note: Under mild sedation, and right lower extremity popliteal block preoperatively, patient was brought into the operating room and placed on the operating table in the supine position. A formal timeout was performed to confirm patient's identity, procedure and procedure site. Then the following IV anesthesia and antibiotics, a well-padded right thigh tourniquet was placed. The right lower extremity was then prepped, scrubbed and draped using aseptic techniques. The right lower extremity was then exsanguinated and then the pressure was inflated to 250 mmHg. The attention was first directed to the lateral calcaneus. Under intraoperative x-ray, a provisional calcaneal osteotomy was marked on the skin, at least 1.5 cm posterior to the fibula/peroneal tendons in 1.1 cm anterior to the calcaneal tuberosity. Then a 0.5 to 1 cm full-thickness skin incision was made at the lateral central calcaneal body overlying the provisional osteotomy marked on skin. Then the incision was carried deep to periosteum layer with a mosquito forcep. Then the soft tissue and periosteum layer was elevated off the provisional osteotomy site with a bone elevator. Then Arthrex 3 x 20 mm bur operating at 6000 RPM was introduced to the skin incision. Following four- quadrant MIS osteotomy and under intraoperative x-ray guidance, the posterior tuber of the calcaneus was mobilized without any remarks of medial flexor tendon or neurovascular deficit. Then approximately 0.5 x 1 cm medializing shift of the posterior calcaneal tuber was achieved. Using standard AO technique, 2 x 7.0 mm fully threaded screws were used to fix and stabilize the posterior calcaneal tuber fragment. Care was taken and verified that the screws were in adequate length without violating subtalar joint and indeed within the calcaneal tuber upon axial view. The surgical sites were irrigated with copious saline and closed with 4-0 nylon. The attention was then directed to the anterior calcaneal process. A curvilinear incision was made over lying the dorsal lateral aspect of the anterior process extending from the CC joint to the middle facet of the subtalar joint. Incision was carried deep with a combination of sharp and blunt dissection with care to protect and retract all the neurovascular bundles. The peroneal tendons were carefully retracted plantarly and protected in the anterior talar process was visualized. A guidepin was introduced from lateral to medial parallel to the CC joint and also perpendicular to the lateral calcaneal wall, proximally 1.3 cm proximal to the CC joint but also found anterior to the middle subtalar facet based on intraoperative x-ray. Then a sagittal saw was used to osteomize along the guidepin with care to protect and preserve the medial cortex. The osteotomy site was opened up with a pin distractor and a 12 mm lateral based wedge was measured and determined fit to achieve a straight lateral column. Care was taken to assure the anterior calcaneal fragment did not migrate dorsally and the CC joint was preserved. The metallic graft was also tented in and fitted well without any prominence circumferentially. Then the metallic graft was stabilized with an Intra-plant fully threaded metallic screw to prevent graft migration. Then the surgical site was irrigated with copious saline solution and closed in layers with 4-0 Monocryl and 4-0 nylon. Then the attention was directed to the dorsal first cuneiform. A linear incision was made medial to the EHL overlying the first cuneiform. The incision was carried to deep with a combination of sharp and blunt dissection with care to protect and retract all the neurovascular bundles. Then a guidepin was introduced from dorsal to plantar at the midportion of the first cuneiform parallel to the first TMT. Adequate and satisfactory hardware placement was confirmed on x-ray and then a sagittal saw was used to osteotomize the dorsal first cuneiform with care to preserve the plantar cortex and the second metatarsal base. A 6.5 mm metallic graft was trimmed to fit to achieve adequate plantar flexion at the first ray and medial column and the forefoot was noted balanced to the right foot. A metallic staple was used to affix the metallic wedge graft without any palpable osseous or graft prominence dorsally through skin. Adequate hardware placement position was noted without any violation to the neighboring joints based on x-ray. At this time, tourniquet was deflated at 2-hour adrianna. The surgical site was covered with gauze and Coban. 20 minutes after, the tourniquet was reinflated to 250 mmHg. then the incision was made along the PT tendon extending from the medial navicular tuberosity to the posterior medial malleolus. Care was taken to deepen the incision to the layer of PT tendon sheath with care to protect and retract all the neurovascular bundles. A linear capsulotomy was made along the PT tendon sheath to visualize the tendon. At this time, we found significant and multiple intrasubstance tearing and degeneration along the PT tendon without significant tenosynovitis. All the diseased and degenerated PT tendon [<50%]was excised with a #15 blade. The PB tendon was retubularized with 2-0 FiberWire. Then the FDL was harvested just superior to the ABH muscle belly, proximal to the Knot of Tyrell. #2 FiberWire whipstitch was applied to 1 cm distal stump of the FDL. The tendon was measured 5 mm in diameter and a 5.5 mm drill was angulated from plantar to dorsal aspect of the navicular while remain in the osseous body without violating the neighboring joints confirmed on x-ray. Then a 5.5mm tenodesis screw was used to affix the FDL into the navicular under physiological tension. Then the retinaculum was repaired with 2-0 Vicryl with the foot held inverted and dorsiflexed. Then the surgical sites was irrigated with copious saline solution. The skin was closed with a combination of 4 Monocryl and 4 nylon. All the surgical sites were dressed with Xeroform, 4 x4 gauze, ABD. The right lower extremity was immobilized in a well-padded Davis compression splint with ankle held near 90 degrees dorsiflexion. Tourniquet was deflated and adequate digital perfusion was noted. Patient tolerated anesthesia procedure well with neurovascular status intact and vital signs stable. Patient was then transferred to PACU for continuous re covery. Pending right foot and calcaneal axial x-ray. WILBER VALENTINE DPM Mar 22, 2021 14:55
[2021-03-22] MEDS ORDERED: oxyCODONE/APAP 5/325 1 TAB TABLET PO ONE (15:00)
[2021-03-22] MEDS ORDERED: GABAPENTIN 100 MG CAPSULE. PO ONE (15:00)
[2021-03-22] MEDS ORDERED: ACETAMINOPHEN 325 MG TABLET. PO ONE (15:00)
[2021-03-22] MEDS: fentaNYL PF VIAL 100 MCG/2 ML VIAL IVP PRN ×2 (15:18→15:28)
[2021-03-22] MEDS ORDERED: GABA-585 PO (15:22)
[2021-03-22] MEDS ORDERED: HYDR-2761 PO (15:22)
[2021-03-22] MEDS ORDERED: ACET500T68 PO (15:23)
[2021-03-22 16:30] VITALS: BP 112/65
--- NOTE | 2021-03-22 19:55 | RAD ---
EXAM: Right foot, 3 views; right calcaneus, 2 views. HISTORY: Internal fixation. COMPARISON: 02/23/2021 FINDINGS: 3 views of the right foot and 2 views of the calcaneus are obtained. There are findings con sistent with calcaneal osteotomy and internal fixation. There is additional fusion instrumentation in volving the medial cuneiform and anterior calcaneus. There is soft tissue swelling. There is external casting material. IMPRESSION: Postoperative changes involving the midfoot and hindfoot, described above. Evaluation of bony detail is limited due to casting material. Electronically signed by: Nilda Cox MD (03/22/2021 3:21 PM) [id number]
== END 2021-03-22 16:55 | disposition home or self-care (01) ==
LOC: SURG 08:09
PROVIDERS: ATTEND Podiatrist
DX: M76.821 Posterior tibial tendinitis, right leg (principal); I10 Essential (primary) hypertension; G47.30 Sleep apnea, unspecified; I48.91 Unspecified atrial fibrillation; E03.9 Hypothyroidism, unspecified; F32.9 Major depressive disorder, single episode, unspecified; Z90.710 Acquired absence of both cervix and uterus; Z90.49 Acquired absence of other specified parts of digestive tract; Z98.890 Other specified postprocedural states; Z79.899 Other long term (current) drug therapy; Z87.891 Personal history of nicotine dependence; Z88.8 Allergy status to other drugs, medicaments and biological substances
CPT/HCPCS: 27691; 28300; 28304; 36415; 64450; 73630; 73650; 80048; 82306; A4930; A6223; A6253; A6402; A6449; C1713; C1769; C1776; J0330; J0690; J1100; J1170; J2250; J2370; J2405; J2704; J2710; J2795; J3010; J3490; A6455; J1885; J3370